=== PATIENT | female | born 1950 | race Caucasian/White ===

== ENCOUNTER 2017-09-17 21:25 | Emergency (ER) | payer BC, OTHER ==
[~2017-09-17] VITALS: Ht 167.6 cm; Wt 75.0 kg
[2017-09-17 21:29] VITALS: Ht 167.6 cm; Wt 75.0 kg
[2017-09-17] MEDS ORDERED: SODIUM CHLORIDE 0.9% 1000ML 1,000 ML IV STA ×2 (21:33→23:07)
[2017-09-17] MEDS ORDERED: METOCLOPRAMIDE HCL INJ 5 MG/ML 2 ML VIAL IV STA (21:33)
[2017-09-17] MEDS ORDERED: CEFTRIAXONE SOD INJ 2,000 MG in DEXTROSE 5% 50ML 50 ML IV STA (21:33)
[2017-09-17] MEDS ORDERED: ALBUT/IPRATROP 3MG/0.5MG NEB 3 ML VIAL INH STA (21:41)
[2017-09-17] MEDS ORDERED: DEXAMETHASONE **PF** INJ 10 MG/ML VIAL IV ONE (21:45)
[2017-09-17 22:11] LABS: BASO % 0.7 %; BASO ABS # 0.02 K/uL (0-0.2); COMPLETE YES; HEMATOCRIT 38.8 % (37-47); LYMPH % 13.2 %; LYMPH ABS # 0.38 K/uL (1.2-3.4); MEAN CELL VOLUME 87.6 fL (80-100); MEAN CORPUSCULAR HGB CONC 34.3 g/dl (32-36); MEAN PLATELET VOLUME 9.9 fL (7.4-10.4); MONO % 8.4 %; NEUT % 77.7 %; PLATELET COUNT 192 K/uL (130-400); RED BLOOD COUNT 4.43 M/uL (4.2-5.4); WHITE BLOOD COUNT 2.87 K/uL (4.8-10.8)
[2017-09-17 22:12] VITALS: O2SAT 98
[2017-09-17 22:22] LABS: PARTIAL THROMBOPLASTIN RATIO 1.1; PROTHROMBIN TIME (PATIENT) 10.7 SECONDS (9.0-12.0)
[2017-09-17 22:29] LABS: ALT/SGPT 18 U/L (12-78); BLOOD UREA NITROGEN 8 mg/dl (7-18); BUN/CREATININE RATIO 12.1 (10-20); CALCIUM 8.5 mg/dl (8.5-10.1); CARBON DIOXIDE 24 mmol/L (21-32); CHLORIDE 98 mmol/L (98-107); CREATININE 0.63 mg/dl (0.60-1.20); GLUCOSE 100 mg/dl (70-99); POTASSIUM 3.7 mmol/L (3.5-5.1); SODIUM 131 mmol/L (136-145)
[2017-09-17 22:32] LABS: ALKALINE PHOSPHATASE 95 U/L (45-117); AST/SGOT 18 U/L (15-37)
--- NOTE | 2017-09-17 22:32 | DIAGNOSTIC IMAGING REPORT ---
CHEST ONE VIEW PORTABLE HISTORY: Sepsis COMPARISON: None. FINDINGS: The lungs are hyperexpanded with mild apical predominant emphysematous changes. The lungs are clear. No pleural effusions. No pneumothorax. Mildly tortuous thoracic aorta. The heart is normal in size. IMPRESSION: No acute process. Electronically signed by: Ulysses Gross M.D. 09/17/2017 10:30 PM Dictated Date/Time: 09/17/2017 10:29 PM
--- NOTE | 2017-09-17 22:36 | EMERGENCY ROOM VISIT NOTE ---
ED Visit Note First contact with patient: 21:31 I have seen and evaluated this patient in conjunction with Kaylee Aranda and agree with the treatment plan. Current/Historical Medications No Active Prescriptions or Reported Meds Allergies Coded Allergies: Penicillins (Verified Allergy, Severe, THROAT SWELLING, 09/17/17) Codeine (Verified Allergy, Mild, NAUSEA, 09/17/17) Sulfa Drugs (Unverified Allergy, Mild, SWELLING/RASH, 09/17/17) Vital Signs Date Time Temp Pulse Resp B/P (MAP) Pulse Ox O2 Delivery O2 Flow Rate FiO2 09/17/17 22:12 98 Room Air 09/17/17 22:01 103 09/17/17 21:58 102 20 150/100 100 Room Air 09/17/17 21:50 98 Room Air 09/17/17 21:29 37.2 114 20 152/94 96 Room Air Laboratory Results 09/17/17 21:50 Red Blood Count 4.43, Mean Corpuscular Volume 87.6, Mean Corpuscular Hemoglobin 30.0, Mean Corpuscular Hemoglobin Concent 34.3, Mean Platelet Volume 9.9, Neutrophils (%) (Auto) 77.7, Lymphocytes (%) (Auto) 13.2, Monocytes (%) (Auto) 8.4, Eosinophils (%) (Auto) 0.0, Basophils (%) (Auto) 0.7, Neutrophils # (Auto) 2.23, Lymphocytes # (Auto) 0.38, Monocytes # (Auto) 0.24, Eosinophils # (Auto) 0.00, Basophils # (Auto) 0.02 09/17/17 21:50 Test 09/17/17 21:50 09/17/17 21:56 09/17/17 21:58 09/17/17 22:34 White Blood Count 2.87 K/uL (4.8-10.8) Red Blood Count 4.43 M/uL (4.2-5.4) Hemoglobin 13.3 g/dL (12.0-16.0) Hematocrit 38.8 % (37-47) Mean Corpuscular Volume 87.6 fL (80-100) Mean Corpuscular Hemoglobin 30.0 pg (25-34) Mean Corpuscular Hemoglobin Concent 34.3 g/dl (32-36) Platelet Count 192 K/uL (130-400) Mean Platelet Volume 9.9 fL (7.4-10.4) Neutrophils (%) (Auto) 77.7 % Lymphocytes (%) (Auto) 13.2 % Monocytes (%) (Auto) 8.4 % Eosinophils (%) (Auto) 0.0 % Basophils (%) (Auto) 0.7 % Neutrophils # (Auto) 2.23 K/uL (1.4-6.5) Lymphocytes # (Auto) 0.38 K/uL (1.2-3.4) Monocytes # (Auto) 0.24 K/uL (0.11-0.59) Eosinophils # (Auto) 0.00 K/uL (0-0.5) Basophils # (Auto) 0.02 K/uL (0-0.2) RDW Standard Deviation 40.8 fL (36.4-46.3) RDW Coefficient of Variation 12.6 % (11.5-14.5) Immature Granulocyte % (Auto) 0.0 % Immature Granulocyte # (Auto) 0.00 K/uL (0.00-0.02) Prothrombin Time 10.7 SECONDS (9.0-12.0) Prothromb Time International Ratio 1.0 (0.9-1.1) Activated Partial Thromboplast Time 29.0 SECONDS (21.0-31.0) Partial Thromboplastin Ratio 1.1 Anion Gap 9.0 mmol/L (3-11) Est Creatinine Clear Calc Drug Dose 87.2 ml/min Estimated GFR () 106.1 Estimated GFR (Non- 91.5 BUN/Creatinine Ratio 12.1 (10-20) Calcium Level 8.5 mg/dl (8.5-10.1) Total Bilirubin 1.1 mg/dl (0.2-1) Aspartate Amino Transf (AST/SGOT) 18 U/L (15-37) Alanine Aminotransferase (ALT/SGPT) 18 U/L (12-78) Alkaline Phosphatase 95 U/L (45-117) Total Protein 7.3 gm/dl (6.4-8.2) Albumin 3.7 gm/dl (3.4-5.0) Globulin 3.6 gm/dl (2.5-4.0) Albumin/Globulin Ratio 1.0 (0.9-2) Bedside Lactic Acid Venous 0.65 mmol/L (0.90-1.70) Medications Administered Medications (Trade) Dose Ordered Sig/Andre Route Start Time Stop Time Status Last Admin Dose Admin Ceftriaxone Sodium 2000 mg/ Dextrose 70 ml @ 100 mls/hr ONE STAT IV 09/17/17 21:33 09/17/17 22:14 DC 09/17/17 22:06 100 MLS/HR Dexamethasone Sodium Phosphate (Dexamethasone Inj Pf) 10 mg NOW ONCE IV 09/17/17 21:45 09/17/17 21:46 DC 09/17/17 22:01 10 MG Metoclopramide HCl (Reglan Inj) 10 mg NOW STAT IV 09/17/17 21:33 09/17/17 21:42 DC 09/17/17 22:03 10 MG Sodium Chloride 1,000 ml @ 999 mls/hr Q1H1M STAT IV 09/17/17 21:33 09/17/17 22:33 DC 09/17/17 22:01 999 MLS/HR Albuterol/ Ipratropium (Duoneb) 3 ml NOW STAT INH 09/17/17 21:41 09/17/17 21:42 DC 09/17/17 22:03 3 ML Departure Information Prescriptions No Active Prescriptions or Reported Meds Referrals Indra Sylvester M.D. (PCP) Patient Instructions [facility]
[2017-09-17] MEDS ORDERED: DiphenhydrAMINE HCL 50 MG/ML VIAL IV STA (22:42)
[2017-09-17] MEDS ORDERED: KETOROLAC TROMETHAMINE 30 MG/ML VIAL IV STA ×2 (22:42→22:49)
[2017-09-17] MEDS ORDERED: PROCHLORPERAZINE 5 MG/ML 2 ML VIAL IV STA (22:42)
--- NOTE | 2017-09-17 22:44 | DIAGNOSTIC IMAGING REPORT ---
HEAD CT NONCONTRAST CT DOSE: 915.04 mGy.cm HISTORY: severe head/neck pain/fever TECHNIQUE: Multiaxial CT images of the head were performed without the use of intravenous contrast. Automated exposure control was utilized for this study. A dose lowering technique was utilized adhering to the principles of ALARA. Comparison: None. Findings: The paranasal sinuses and mastoid air cells are clear. The calvarium and skull base are intact. The ventricles and sulci are within normal limits. There is no mass, hematoma, midline shift, or acute infarct. Impression: No acute intracranial abnormality. Electronically signed by: Ulysses Gross M.D. 09/17/2017 10:43 PM Dictated Date/Time: 09/17/2017 10:37 PM
--- NOTE | 2017-09-17 22:48 | DIAGNOSTIC IMAGING REPORT ---
CERVICAL SPINE CT CT DOSE: HISTORY: severe head/neck pain/fever TECHNIQUE: Multiaxial CT images of the cervical spine were performed and reformatted in the sagittal and coronal plane without the use of contrast. A dose lowering technique was utilized adhering to the principles of ALARA. COMPARISON: None. FINDINGS: No fractures within the cervical spine. Mild disc space narrowing at C2-C3, C3-C4, C4-C5, and C6-C7. Moderate disc space narrowing at C5-C6. There is 1 mm of anterolisthesis of C4 and C5. Prevertebral soft tissues and the C1-C2 interval are intact. Mild to moderate facet degenerative changes, left greater than right. Dextroscoliosis of the cervical spine. An 11 mm nodule within the right thyroid lobe. The lung apices are clear. No pneumothorax. IMPRESSION: No fractures within the cervical spine. [id number] degenerative changes as described above. Electronically signed by: Ulysses Gross M.D. 09/17/2017 10:47 PM Dictated Date/Time: 09/17/2017 10:43 PM
[2017-09-17] MEDS ORDERED: OSELTAMIVIR PHOSPHATE 75 MG CAP PO STA (22:59)
[2017-09-17 23:16] LABS: PROCALCITONIN < 0.05 ng/ml (0-0.5)
[2017-09-17 23:25] LABS: LYME DISEASE AB IGG NEG (NEG)
[2017-09-17 23:26] LABS: LYME DISEASE AB IGM NEG (NEG)
[2017-09-17] MEDS ORDERED: ALBUTEROL HFA 8 GM INHALER INH STA (23:56)
[2017-09-17] MEDS ORDERED: OSEL75CA12 PO (23:56)
[2017-09-17] MEDS ORDERED: ONDA4TAB10 SL (23:56)
[2017-09-18] MEDS ORDERED: ONDANSETRON HOME PACK 4MG OD TAB PO ONE
--- NOTE | 2017-09-18 00:03 | EMERGENCY ROOM VISIT NOTE ---
History First contact with patient: 21:31 Chief Complaint: RESPIRATORY PROBLEMS Stated Complaint: BRONCHITIS, GATICA History of Present Illness The patient is a 67 year old female who presents to the Emergency Room with complaints of headache, neck pain, fever, chills, body aches, runny nose, allergies, arthralgias, cough, congestion, nausea, vomiting for the past day. No temperature was taken. Patient denies chest pain, dyspnea, abdominal pain, diarrhea, urinary symptoms, back pain. No tick bites. Patient states she feels horrible. She did not receive the flu vaccine. Review of Systems See HPI for pertinent positives & negatives. A total of 10 systems reviewed and were otherwise negative. Past Medical/Surgical History Umbilical hernia repair Social History Smoking Status: Never Smoker Smokeless Tobacco Use: No Alcohol Use: none Drug Use: none Marital Status: single Housing Status: lives alone Occupation Status: employed Current/Historical Medications Scheduled Ondasetron Odt (Zofran Odt), 4 MG SL Q6H Oseltamivir (Tamiflu), 75 MG PO BID Physical Exam Vital Signs Date Time Temp Pulse Resp B/P (MAP) Pulse Ox O2 Delivery O2 Flow Rate FiO2 09/17/17 22:59 37.5 108 18 158/97 95 Room Air 09/17/17 22:12 98 Room Air 09/17/17 22:01 103 09/17/17 21:58 102 20 150/100 100 Room Air 09/17/17 21:50 98 Room Air 09/17/17 21:29 37.2 114 20 152/94 96 Room Air Physical Exam VITALS: Vitals are noted on the nurse's note and reviewed by myself. Vital signs stable. GENERAL: White female who appears ill coughing with runny nose laying in the position nondiaphoretic, well-developed well-nourished. SKIN: The skin was without rashes, erythema, edema, or bruising. There is no tenting of the skin. Capillary reflex less than 2 seconds. HEAD: Normocephalic atraumatic. EARS: External auditory canals clear, tympanic membranes pearly pond without erythema or effusion bilaterally. EYES: Pupils equal round and reactive to light and accommodation. Conjunctivae without injection, sclerae without icterus. Extraocular movements intact. NOSE: Patent, turbinates without inflammation or discharge. No sinus tenderness. MOUTH: Mucous membranes mildly dry. Pharynx with erythema without exudate. Uvula midline. Airway patent. Tongue does not deviate. NECK: Supple without nuchal rigidity. No lymphadenopathy. No thyromegaly. Cervical spine is nontender. No JVD. HEART: Regular rate and rhythm without murmurs gallops or rubs. LUNGS: Clear to auscultation bilaterally without wheezes, rales or rhonchi. No dullness to percussion. No retractions or accessory muscle use. ABDOMEN: Positive bowel sounds x 4. Normal tympanic percussion. Soft, nontender, without masses or organomegaly. Awan sign negative. No guarding or rebound tenderness. No CVA tenderness MUSCULOSKELETAL: No muscle atrophy, erythema, or edema noted. NEURO: Patient was alert and oriented to person place and time. Normal sensation to light and sharp touch. No focal neurological deficits. Medical Decision & Procedures Laboratory Results 09/17/17 21:50 Red Blood Count 4.43, Mean Corpuscular Volume 87.6, Mean Corpuscular Hemoglobin 30.0, Mean Corpuscular Hemoglobin Concent 34.3, Mean Platelet Volume 9.9, Neutrophils (%) (Auto) 77.7, Lymphocytes (%) (Auto) 13.2, Monocytes (%) (Auto) 8.4, Eosinophils (%) (Auto) 0.0, Basophils (%) (Auto) 0.7, Neutrophils # (Auto) 2.23, Lymphocytes # (Auto) 0.38, Monocytes # (Auto) 0.24, Eosinophils # (Auto) 0.00, Basophils # (Auto) 0.02 09/17/17 21:50 Test 09/17/17 21:50 09/17/17 21:56 09/17/17 21:58 White Blood Count 2.87 K/uL (4.8-10.8) Red Blood Count 4.43 M/uL (4.2-5.4) Hemoglobin 13.3 g/dL (12.0-16.0) Hematocrit 38.8 % (37-47) Mean Corpuscular Volume 87.6 fL (80-100) Mean Corpuscular Hemoglobin 30.0 pg (25-34) Mean Corpuscular Hemoglobin Concent 34.3 g/dl (32-36) Platelet Count 192 K/uL (130-400) Mean Platelet Volume 9.9 fL (7.4-10.4) Neutrophils (%) (Auto) 77.7 % Lymphocytes (%) (Auto) 13.2 % Monocytes (%) (Auto) 8.4 % Eosinophils (%) (Auto) 0.0 % Basophils (%) (Auto) 0.7 % Neutrophils # (Auto) 2.23 K/uL (1.4-6.5) Lymphocytes # (Auto) 0.38 K/uL (1.2-3.4) Monocytes # (Auto) 0.24 K/uL (0.11-0.59) Eosinophils # (Auto) 0.00 K/uL (0-0.5) Basophils # (Auto) 0.02 K/uL (0-0.2) RDW Standard Deviation 40.8 fL (36.4-46.3) RDW Coefficient of Variation 12.6 % (11.5-14.5) Immature Granulocyte % (Auto) 0.0 % Immature Granulocyte # (Auto) 0.00 K/uL (0.00-0.02) Prothrombin Time 10.7 SECONDS (9.0-12.0) Prothromb Time International Ratio 1.0 (0.9-1.1) Activated Partial Thromboplast Time 29.0 SECONDS (21.0-31.0) Partial Thromboplastin Ratio 1.1 Anion Gap 9.0 mmol/L (3-11) Est Creatinine Clear Calc Drug Dose 87.2 ml/min Estimated GFR () 106.1 Estimated GFR (Non- 91.5 BUN/Creatinine Ratio 12.1 (10-20) Calcium Level 8.5 mg/dl (8.5-10.1) Total Bilirubin 1.1 mg/dl (0.2-1) Aspartate Amino Transf (AST/SGOT) 18 U/L (15-37) Alanine Aminotransferase (ALT/SGPT) 18 U/L (12-78) Alkaline Phosphatase 95 U/L (45-117) Troponin I < 0.015 ng/ml (0-0.045) Total Protein 7.3 gm/dl (6.4-8.2) Albumin 3.7 gm/dl (3.4-5.0) Globulin 3.6 gm/dl (2.5-4.0) Albumin/Globulin Ratio 1.0 (0.9-2) Procalcitonin < 0.05 ng/ml (0-0.5) Lyme Disease IgG Antibody NEG (NEG) Lyme Disease IgM Antibody NEG (NEG) Bedside Lactic Acid Venous 0.65 mmol/L (0.90-1.70) Influenza Type A Antigen POS for Influ A (NEG) Influenza Type B Antigen Neg for Influ B (NEG) Medications Administered Medications (Trade) Dose Ordered Sig/Andre Route Start Time Stop Time Status Last Admin Dose Admin Ceftriaxone Sodium 2000 mg/ Dextrose 70 ml @ 100 mls/hr ONE STAT IV 09/17/17 21:33 09/17/17 22:14 DC 09/17/17 22:06 100 MLS/HR Dexamethasone Sodium Phosphate (Dexamethasone Inj Pf) 10 mg NOW ONCE IV 09/17/17 21:45 09/17/17 21:46 DC 09/17/17 22:01 10 MG Metoclopramide HCl (Reglan Inj) 10 mg NOW STAT IV 09/17/17 21:33 09/17/17 21:42 DC 09/17/17 22:03 10 MG Sodium Chloride 1,000 ml @ 999 mls/hr Q1H1M STAT IV 09/17/17 21:33 09/17/17 22:33 DC 09/17/17 22:01 999 MLS/HR Albuterol/ Ipratropium (Duoneb) 3 ml NOW STAT INH 09/17/17 21:41 09/17/17 21:42 DC 09/17/17 22:03 3 ML Ketorolac Tromethamine (Toradol Inj) 30 mg NOW STAT IV 09/17/17 22:42 09/17/17 22:44 DC 09/17/17 23:00 30 MG Prochlorperazine Edisylate (Compazine Inj) 5 mg NOW STAT IV 09/17/17 22:42 09/17/17 22:44 DC 09/17/17 23:03 5 MG Diphenhydramine HCl (Benadryl Inj) 50 mg NOW STAT IV 09/17/17 22:42 09/17/17 22:44 DC 09/17/17 23:02 50 MG Oseltamivir Phosphate (Tamiflu Cap) 75 mg NOW STAT PO 09/17/17 22:59 09/17/17 23:00 DC 09/17/17 23:13 75 MG Sodium Chloride 1,000 ml @ 999 mls/hr Q1H1M STAT IV 09/17/17 23:07 09/18/17 00:07 09/17/17 23:14 999 MLS/HR ED Course Prior records/ancillary studies reviewed. Triage Nursing notes reviewed. Additional history obtained from friend. The patient's history was concerning for fever. Differential diagnosis: Etiologies such as viral syndrome, otitis, pharyngitis, pneumonia, influenza, meningitis, urinary tract infection, sepsis, bacteremia, as well as others were entertained. Physical examination: Patient is alert, coughing and appears ill ER treatment provided: IV fluids, Rocephin, Reglan, Decadron, nebulizer, Tamiflu On reassessment the patient felt better. Diagnostics interpreted by me: ECG: Normal sinus, normal intervals, no acute ST-T changes, rate of 109. Impression sinus tachycardia interpreted by myself The labs revealed positive flu a Negative lactic acid. Blood cultures pending Imaging studies: CERVICAL SPINE CT CT DOSE: HISTORY: severe head/neck pain/fever TECHNIQUE: Multiaxial CT images of the cervical spine were performed and reformatted in the sagittal and coronal plane without the use of contrast. A dose lowering technique was utilized adhering to the principles of ALARA. COMPARISON: None. FINDINGS: No fractures within the cervical spine. Mild disc space narrowing at C2-C3, C3-C4, C4-C5, and C6-C7. Moderate disc space narrowing at C5-C6. There is 1 mm of anterolisthesis of C4 and C5. Prevertebral soft tissues and the C1-C2 interval are intact. Mild to moderate facet degenerative changes, left greater than right. Dextroscoliosis of the cervical spine. An 11 mm nodule within the right thyroid lobe. The lung apices are clear. No pneumothorax. IMPRESSION: No fractures within the cervical spine. [id number]-[id number] degenerative changes as described above. HEAD CT NONCONTRAST CT DOSE: 915.04 mGy.cm HISTORY: severe head/neck pain/fever TECHNIQUE: Multiaxial CT images of the head were performed without the use of intravenous contrast. Automated exposure control was utilized for this study. A dose lowering technique was utilized adhering to the principles of ALARA. Comparison: None. Findings: The paranasal sinuses and mastoid air cells are clear. The calvarium and skull base are intact. The ventricles and sulci are within normal limits. There is no mass, hematoma, midline shift, or acute infarct. Impression: No acute intracranial abnormality. Electronically signed by: Ulysses Gross M.D. Electronically signed by: Ulysses Gross M.D. CHEST ONE VIEW PORTABLE HISTORY: Sepsis COMPARISON: None. FINDINGS: The lungs are hyperexpanded with mild apical predominant emphysematous changes. The lungs are clear. No pleural effusions. No pneumothorax. Mildly tortuous thoracic aorta. The heart is normal in size. IMPRESSION: No acute process. Electronically signed by: Ulysses Gross M.D. This appears to be consistent with influenza A. Patient came in complaining of headache, neck pain, myalgias, arthralgias, vomiting and extreme fatigue. Patient was given initially antibiotics for possible meningitis but after she was hydrated she felt much better and had a positive flu. I do not believe she' s got meningitis and patient does not want the LP. I felt this is reasonable. Negative head CT. Negative chest x-ray. Negative neck scan. Patient was tolerating fluids. She was offered admission and declined. Patient was neurovascularly and neurologically intact. No pneumonia on x-ray. She did not have acute abdomen on exam. She is advised to take medications as directed, stay well-hydrated, rest, follow-up family care in a few days or here in the ER sooner for high fevers, lethargy, vomiting, worsening signs or symptoms or as needed. Patient was informed she is highly contagious and should stay at home at this 24 hours fever free. By the evaluation outlined above emergent etiologies such as otitis, pharyngitis, pneumonia, meningitis, urinary tract infection, sepsis, bacteremia, as well as others were deemed relatively unlikely. The pt informed about the findings as listed above. All questions were answered and pleased with the treatment. Return instructions were outlined and the patient was discharged in stable condition. Outpatient prescription management: Zofran, Tamiflu Referral: The patient was referred back to their primary care physician for follow-up in 2 to 3 days for a recheck of the current condition. Case reviewed with my attending. Medical Decision As above Medication Reconcilliation Current Medication List: was personally reviewed by me Blood Pressure Screening Patient's blood pressure: Elevated blood pressure Blood pressure disposition: Elevated BP felt to be situational Impression Primary Impression: Influenza A Departure Information Prescriptions Ondasetron Odt (ZOFRAN ODT) 4 Mg Tab 4 MG SL Q6H, #10 TAB Prov: Kaylee Aranda .CASSANDRA 09/17/17 Oseltamivir (Tamiflu) 75 Mg Cap 75 MG PO BID for 5 Days, #10 CAP Prov: Kaylee Aranda PA-C 09/17/17 Referrals Indra Sylvester M.D. (PCP) Patient Instructions [facility]
[2017-09-18 00:15] VITALS: BP 142/93; PULSE 99; TEMP 37.4; O2SAT 96
== END 2017-09-18 00:15 | disposition home or self-care (01) ==
LOC: C.EDB 21:26 → C.EDA 09-18 00:15
DX: J11.1 Influenza due to unidentified influenza virus with other respiratory manifestations (principal)